=== PATIENT | female | born 1990 | race American Indian/Alaskan Native ===

== ENCOUNTER 2020-04-30 14:24 | Emergency (ER) | payer BC | END 2020-04-30 15:07 | disposition home or self-care (01) | LOC: JVIRT 14:24 | DX: Z03.818 Encounter for observation for suspected exposure to other biological agents ruled out (principal) | CPT/HCPCS: C9803; G2012-GT; U0003 ==

== ENCOUNTER 2020-06-01 12:14 | Emergency (ER) | payer BC | END 2020-06-01 13:09 | disposition home or self-care (01) | LOC: JVIRT 12:14 | DX: U07.1 COVID-19 (principal) | CPT/HCPCS: C9803; Q3014-GT; U0003 ==